=== PATIENT | male | born 1965 | race African-American/Black ===

== ENCOUNTER 2024-11-09 11:58 | Emergency (ER) | payer OTHER, SELFPAY ==
[2024-11-09] VITALS (26 sets, daily range): BP systolic 146–202; BP diastolic 91–118; PULSE 63–91; RESP 13–20; TEMP 36.9–37; O2SAT 96–100
--- NOTE | 2024-11-09 18:29 | ED.GENADULT ---
HPI - General Adult General Chief complaint: Hypertension Stated complaint: Hypertension Time Seen by Provider: 11/09/24 18:01 Mode of arrival: EMS History of Present Illness HPI narrative: 58-year-old gentleman brain aneurysm, hypertension brought in via EMS after being initially evaluated to get established with PCP visit today noticed blood pressure was extremely high told to come to the ER to be evaluated. Patient states he has not been compliant in taking his blood pressure medicines as previously stated which includes hydralazine and metoprolol. He has now actual reason why he has not taken it regularly but just states he has not taken them as directed. He denies fever, chills, body aches, chest pain, shortness of breath, leg swelling, headache, dizziness, blurred vision, weakness in the arms, legs, difficulty swallowing, or speaking. Other than what is stated 14 point review of system is negative. Related Data Allergies Allergy/AdvReac Type Severity Reaction Status Date / Time No Known Drug Allergies Allergy Verified 11/09/24 12:02 Review of Systems Review of Systems ROS Unobtainable: All systems reviewed & are unremarkable except as noted in HPI and below Patient History Social History Smoking Status: Never smoker Smoking Status: Never smoker Exam Narrative Exam Narrative: GENERAL: [58] year old patient appears stated age. Well-developed patient, in mild distress. HEAD: Atraumatic. Normocephalic. EYES: Pupils equal round and reactive. Extraocular motions intact. No scleral icterus. No injection or drainage. ENT: Nose without bleeding, purulent drainage. Throat without erythema, tonsillar hypertrophy or exudate. Airway patent. NECK: Trachea midline. Non tender CARDIOVASCULAR: Regular rate and rhythm without murmurs, gallops, or rubs. RESPIRATORY: Clear to auscultation. Breath sounds equal bilaterally. No wheezes, rales, or rhonchi. GASTROINTESTINAL: Abdomen soft, non-tender, nondistended. EXTREMITIES: No edema or joint tenderness. BACK: Nontender without deformity or crepitance. No flank tenderness. NEURO: AOx3. GCS 15 nonfocal neuro exam SKIN: No rash or erythema of visible areas Initial Vital Signs Initial Vital Signs: Vital Signs Temperature 98.4 F 11/09/24 12:02 Pulse Rate 78 11/09/24 12:02 Respiratory Rate 18 11/09/24 12:02 Blood Pressure 200/113 H 11/09/24 12:02 Pulse Oximetry 98 11/09/24 12:02 Oxygen Delivery Method Room Air 11/09/24 12:02 Course Orders Ordered: ED Orders 11/09/24 18:35 XR chest 1V Stat EKG-12 Lead Stat 11/09/24 18:36 CT angio head and neck Stat CT head/brain wo con Stat 11/09/24 19:03 Complete Blood Count AUTO DIFF Stat Comprehensive Metabolic Panel Stat Lipase Stat Troponin & CK Cardiac Panel Stat 11/09/24 19:25 EKG-12 Lead Routine 11/09/24 22:05 Troponin I Stat Discontinued Medications Aspirin (Aspirin Ec 325 Mg Tablet) 325 mg PO NOW ONE Stop: 11/09/24 19:51 Last Admin: 11/09/24 20:23 Dose: 325 mg Documented By: CLARENCE Metoprolol Tartrate (Metoprolol Tartrate 5 Mg/5 Ml Inj) 5 mg IV NOW ONE Stop: 11/09/24 19:48 Last Admin: 11/09/24 20:31 Dose: 5 mg Documented By: CLARENCE Potassium Chloride (Potassium Chloride 20 Meq/15 Ml Udc) 40 meq PO NOW ONE Stop: 11/09/24 19:51 Last Admin: 11/09/24 20:22 Dose: 40 meq Documented By: LCARENCE Vital Signs Vital signs: Vital Signs - 8 hr 11/09/24 16:43 11/09/24 17:45 11/09/24 18:00 Pulse Rate 91 H 75 76 Respiratory Rate 20 14 16 Blood Pressure 202/118 H Pulse Oximetry 98 100 Oxygen Delivery Method Room Air 11/09/24 18:00 11/09/24 18:30 11/09/24 18:31 Pulse Rate 91 H 90 Respiratory Rate 18 20 Blood Pressure 166/100 H Pulse Oximetry Oxygen Delivery Method 11/09/24 18:31 11/09/24 19:00 11/09/24 19:27 Pulse Rate 73 83 Respiratory Rate 15 20 Blood Pressure 149/114 H Pulse Oximetry 100 100 Oxygen Delivery Method 11/09/24 19:27 11/09/24 19:28 11/09/24 19:28 Pulse Rate 79 Respiratory Rate 15 Blood Pressure 178/115 H 176/112 H Pulse Oximetry 100 Oxygen Delivery Method 11/09/24 19:30 11/09/24 19:30 11/09/24 20:00 Pulse Rate 80 Respiratory Rate 16 Blood Pressure 177/116 H 175/104 H Pulse Oximetry 100 Oxygen Delivery Method 11/09/24 20:00 11/09/24 20:30 11/09/24 20:30 Pulse Rate 69 67 Respiratory Rate 14 13 Blood Pressure 178/101 H Pulse Oximetry 100 100 Oxygen Delivery Method 11/09/24 20:35 11/09/24 20:35 11/09/24 20:46 Pulse Rate 72 64 Respiratory Rate 14 14 Blood Pressure 184/110 H Pulse Oximetry 100 100 Oxygen Delivery Method 11/09/24 20:46 11/09/24 21:00 11/09/24 21:00 Pulse Rate 66 Respiratory Rate 15 Blood Pressure 167/110 H 146/92 H Pulse Oximetry 100 Oxygen Delivery Method Room Air 11/09/24 21:05 11/09/24 21:05 11/09/24 21:15 Pulse Rate 73 Respiratory Rate 15 Blood Pressure 153/100 H 152/102 H Pulse Oximetry 100 Oxygen Delivery Method 11/09/24 21:15 11/09/24 21:44 11/09/24 21:46 Pulse Rate 66 79 68 Respiratory Rate 16 Blood Pressure Pulse Oximetry 100 96 100 Oxygen Delivery Method 11/09/24 21:46 11/09/24 22:00 11/09/24 22:00 Pulse Rate 66 Respiratory Rate Blood Pressure 169/102 H 159/95 H Pulse Oximetry 100 Oxygen Delivery Method 11/09/24 22:15 11/09/24 22:15 11/09/24 22:30 Pulse Rate 63 75 Respiratory Rate 16 Blood Pressure 156/98 H Pulse Oximetry 100 100 Oxygen Delivery Method Room Air Medical Decision Making Lab Data 11/09/24 19:03 11/09/24 19:03 Labs: Lab Results 11/09/24 11/09/24 Range/Units 19:03 22:05 WBC 7.4 (4.5-11.0) X10^3/uL RBC 4.39 L (4.5-5.9) X10^6/uL Hgb 12.3 L (13.5-17.5) g/dL Hct 37.3 L (41-53) % MCV 84.9 (80-100) fL MCH 27.9 (26-34) PG MCHC 32.9 (30-36) % RDW 21.2 H (11.6-14.8) % Plt Count 175 (150-400) X10^3/uL Neut % (Auto) 63.4 (50-75) % Lymph % (Auto) 25.4 (25-40) % [place] % (Auto) 8.6 (3-14) % Eos % (Auto) 1.5 L (2-4) % Baso % (Auto) 1.1 (0-2) % Neut # (Auto) 4700 (2579-1448) /uL Lymph # (Auto) 1900 (4543-5399) /uL [place] # (Auto) 600 (0-900) /uL Eos # (Auto) 100 (0-450) /uL Baso # (Auto) 100 (0-100) /uL Platelet Estimate Adequate on smear RBC Morphology See below Anisocytosis 2+ H Sodium 131 L (137-145) mmol/L Potassium 3.3 L (3.4-5.1) mmol/L Chloride 98 (98-107) mmol/L Carbon Dioxide 25 (22-32) mmol/L BUN 7 L (9-20) mg/dL Creatinine 0.98 (0.66-1.25) mg/dL Estimated GFR > 60 (>60) mL/min BUN/Creatinine Ratio 7.1 (6-22) Glucose 96 (70-99) mg/dL Calcium 9.3 (8.4-10.2) mg/dL Total Bilirubin 1.0 (0.2-1.3) mg/dL AST 37 (17-59) IU/L ALT 17 (<50) IU/L Alkaline Phosphatase 107 (38-126) U/L Total Creatine Kinase 127 (55-170) U/L Troponin I 0.041 H 0.053 H (0.01-0.034) ng/mL Total Protein 8.6 H (6.3-8.2) g/dL Albumin 4.3 (3.5-5.0) g/dL Globulin 4.3 H (1.7-4.1) g/dL Albumin/Globulin Ratio 1.0 (1.0-2.8) Lipase 109 (23-300) U/L Imaging Data CT scan - head: Radiologist's Impression: [address] [address] [address] Scan Report Signed Patient: Halima Wilkes MR#: [id number] : 1965 Acct:[id number] Age/Sex: 58 / M Date of Service: 11/09/24 Loc: ED Accession Number: [id number] Procedure: CT head/brain wo con Ordering Provider: Dylan Edmonds D.O. PROCEDURE: CT HEAD/BRAIN WO CON INDICATIONS: elevated bp. hx of brain aneursym TECHNIQUE: Noncontrast 4.5 mm thick angled axial sections acquired from the foramen magnum to the vertex, with coronal and sagittal reformats. For radiation dose reduction, the following was used: automated exposure control, adjustment of mA and/or kV according to patient size. COMPARISON: None. FINDINGS: Image quality: Streak artifact from aneurysmal clip limits evaluation of surrounding structures. CSF spaces: Basal cisterns are patent. No extra-axial fluid collections. The ventricles are symmetric in size and shape. Brain: No intracranial bleeds or mass effect. There is cerebral volume loss, with resultant ventricular and sulcal prominence. There are periventricular and deep white matter chronic small vessel ischemic changes. There is intracranial internal carotid artery atherosclerosis. 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 Skull and face: Calvarium and visualized facial bones appear intact, without suspicious lesions. Sinuses: Visualized sinuses and mastoids are clear. IMPRESSION: [place] [address] CT Scan Report Signed Patient: Halima Wilkes MR#: [id number] : 1965 Acct:[id number] Age/Sex: 58 / M Date of Service: 11/09/24 Loc: ED Accession Number: [id number] Procedure: CT angio head and neck Ordering Provider: Dylan Edmonds D.O. PROCEDURE: CT ANGIO HEAD AND NECK INDICATIONS: headache/ elevated bp / hx of brain aneursym TECHNIQUE: After the administration of intravenous contrast, 1 mm thick sections acquired from the aortic arch through the [place] of [place]. 3-dimensional detwgok-milhoncuz-ixnlsdlmak (MIP) and/or volume rendering reformats were acquired of the central intracranial vasculature and neck separately. For radiation dose reduction, the following was used: automated exposure control, adjustment of mA and/or kV according to patient size. COMPARISON: None. FINDINGS: Image quality: Streak artifact from left aneurysmal clip. Cerebral CT Angiogram: Internal carotid arteries: No acute findings. Intracranial ICA are patent with no significant stenosis. No occlusion. No aneurysm. Anterior cerebral arteries: Unremarkable. No significant stenosis. No occlusion. No aneurysm. Middle cerebral arteries: Unremarkable. No significant stenosis. No occlusion. No aneurysm. Posterior cerebral arteries: Unremarkable. No significant stenosis. No occlusion. No aneurysm. Basilar artery: Unremarkable. No significant stenosis. No occlusion. No aneurysm. Vertebral arteries: Unremarkable as visualized. Dural venous sinuses: Unremarkable given phase of enhancement. Other: Arterial phase appearance of the brain parenchyma is unremarkable. Neck CT Angiogram: Internal carotid arteries: Unremarkable. No significant stenosis. No dissection or occlusion. Common carotid arteries: Unremarkable. No significant stenosis. No dissection or occlusion. External carotid arteries: Unremarkable. No occlusion. Vertebral arteries: Unremarkable. No significant stenosis. No dissection or occlusion. Aortic Arch and Mediastinum: Partially visualized aortic arch unremarkable without evidence of aneurysm. Origins of the great vessels unremarkable. Other: Arterial phase soft tissues of the neck and chest are unremarkable. IMPRESSION: No significant intracranial arterial abnormality is seen. No significant abnormality is seen within the arteries of the neck. Any quantitative measurements of stenosis were performed using NASCET criteria. Chest x-ray: Radiologist's Impression: [place] [address] XRay Report Signed Patient: Halima Wilkes MR#: [id number] : 1965 Acct:[id number] Age/Sex: 58 / M Date of Service: 11/09/24 Loc: ED Accession Number: [id number] Procedure: XR chest 1V Ordering Provider: Dylan Edmonds D.O. PROCEDURE: XR CHEST 1V INDICATIONS: chest pain TECHNIQUE: One view of the chest was acquired. COMPARISON: None. FINDINGS: Surgical changes and devices: None. Lungs and pleura: Lungs are clear. No pleural effusions or pneumothorax. Mediastinum: Mediastinal contours appear normal. Heart size is normal. Bones and chest wall: No suspicious bony lesions. Overlying soft tissues appear unremarkable. IMPRESSION: No acute cardiopulmonary abnormality is seen. MDM Narrative Medical decision making narrative: Vital signs, nurse triage note, medication list, previous ER visits, and all imaging studies reviewed. Patient given Lopressor 5 mg IV x1. Chest x-ray, CT head and CTA head and neck showed no acute process. Hemoglobin 12.33 sodium 131, potassium 3.3. Troponin 0.041 1st set. Troponin 2nd set 0.053. Sodium 131 potassium 3.[address] head and neck and CT head showed no acute process along with chest x-ray. Patient given Lopressor 5 mg IV x1 and potassium solution.. Patient not having any active chest pain at this time. EKG normal sinus rhythm heart rate [address] T wave changes LVH. Differential diagnosis patient noncompliance taking medication, hypertensive urgency, emergency. Discharge Plan Departure Patient Disposition: Home Clinical Impression: Hypertensive urgency, Acute hyponatremia, Hypokalemia Instructions: DI for High Blood Pressure Activity Restrictions/Additional Instructions: Return with new or worsening symptoms. Please take hydralazine lisinopril and metoprolol as previously prescribed for your blood pressure and please follow up with PCP in 1-2 weeks for re-evaluation. Stand Alone Forms: Patient Portal/API
--- NOTE | 2024-11-09 18:35 | DI.RAD.S_ITS ---
PROCEDURE: XR CHEST 1V INDICATIONS: chest pain TECHNIQUE: One view of the chest was acquired. COMPARISON: None. FINDINGS: Surgical changes and devices: None. Lungs and pleura: Lungs are clear. No pleural effusions or pneumothorax. Mediastinum: Mediastinal contours appear normal. Heart size is normal. Bones and chest wall: No suspicious bony lesions. Overlying soft tissues appear unremarkable. IMPRESSION: No acute cardiopulmonary abnormality is seen. Approved by: Kat Sanford M.D.,Ph.D. on 11/09/2024 at 19:16
--- NOTE | 2024-11-09 18:36 | DI.CT.S_ITS ---
PROCEDURE: CT HEAD/BRAIN WO CON INDICATIONS: elevated bp. hx of brain aneursym TECHNIQUE: Noncontrast 4.5 mm thick angled axial sections acquired from the foramen magnum to the vertex, with coronal and sagittal reformats. For radiation dose reduction, the following was used: automated exposure control, adjustment of mA and/or kV according to patient size. COMPARISON: None. FINDINGS: Image quality: Streak artifact from aneurysmal clip limits evaluation of surrounding structures. CSF spaces: Basal cisterns are patent. No extra-axial fluid collections. The ventricles are symmetric in size and shape. Brain: No intracranial bleeds or mass effect. There is cerebral volume loss, with resultant ventricular and sulcal prominence. There are periventricular and deep white matter chronic small vessel ischemic changes. There is intracranial internal carotid artery atherosclerosis. 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 Skull and face: Calvarium and visualized facial bones appear intact, without suspicious lesions. Sinuses: Visualized sinuses and mastoids are clear. IMPRESSION: No acute intracranial pathology. Approved by: Kat Sanford M.D.,Ph.D. on 11/09/2024 at 19:19
--- NOTE | 2024-11-09 18:36 | DI.CT.S_ITS ---
PROCEDURE: CT ANGIO HEAD AND NECK INDICATIONS: headache/ elevated bp / hx of brain aneursym TECHNIQUE: After the administration of intravenous contrast, 1 mm thick sections acquired from the aortic arch through the [place] of [place]. 3-dimensional wzvxjhs-jrngchjvh-jczyymnifz (MIP) and/or volume rendering reformats were acquired of the central intracranial vasculature and neck separately. For radiation dose reduction, the following was used: automated exposure control, adjustment of mA and/or kV according to patient size. COMPARISON: None. FINDINGS: Image quality: Streak artifact from left aneurysmal clip. Cerebral CT Angiogram: Internal carotid arteries: No acute findings. Intracranial ICA are patent with no significant stenosis. No occlusion. No aneurysm. Anterior cerebral arteries: Unremarkable. No significant stenosis. No occlusion. No aneurysm. Middle cerebral arteries: Unremarkable. No significant stenosis. No occlusion. No aneurysm. Posterior cerebral arteries: Unremarkable. No significant stenosis. No occlusion. No aneurysm. Basilar artery: Unremarkable. No significant stenosis. No occlusion. No aneurysm. Vertebral arteries: Unremarkable as visualized. Dural venous sinuses: Unremarkable given phase of enhancement. Other: Arterial phase appearance of the brain parenchyma is unremarkable. Neck CT Angiogram: Internal carotid arteries: Unremarkable. No significant stenosis. No dissection or occlusion. Common carotid arteries: Unremarkable. No significant stenosis. No dissection or occlusion. External carotid arteries: Unremarkable. No occlusion. Vertebral arteries: Unremarkable. No significant stenosis. No dissection or occlusion. Aortic Arch and Mediastinum: Partially visualized aortic arch unremarkable without evidence of aneurysm. Origins of the great vessels unremarkable. Other: Arterial phase soft tissues of the neck and chest are unremarkable. IMPRESSION: No significant intracranial arterial abnormality is seen. No significant abnormality is seen within the arteries of the neck. Any quantitative measurements of stenosis were performed using NASCET criteria. Approved by: Kat Sanford M.D.,Ph.D. on 11/09/2024 at 19:26
--- NOTE | 2024-11-09 19:16 | EKG_ITS ---
[place] [address] [place] [address] Test Date: 2024-11-09 Pat Name: Halima Wilkes Department: [facility] Room: Gender: Male Auto Electrical Technician: LEONARDOTRISTIN : 1965 Requested By: Order Number: [id number] Reading MD: Reggie Castillo Measurements Intervals [place] Rate: 84 P: 103 [place]: 148 QRS: 194 QRSD: 86 T: 242 QT: 434 QTc: 512 Interpretive Statements Suspect arm lead reversal, interpretation assumes no reversal Normal sinus rhythm Right superior axis deviation Pulmonary disease pattern Left ventricular hypertrophy with repolarization abnormality ( Sokolow-Mercado ) Prolonged QT Electronically Signed On 11-11-2024 17:08:43 PDT by Reggie Castillo
[2024-11-09 19:17] LABS: Add Manual Diff / Slide Review NO; Hematocrit 37.3 % (41-53); Hemoglobin 12.3 g/dL (13.5-17.5); Lymphocytes Absolute Auto 1900 /uL (1100-4500); Mean Corpuscular HGB Conc 32.9 % (30-36); Mean Corpuscular Hemoglobin 27.9 PG (26-34); Mean Corpuscular Volume 84.9 fL (80-100); Platelet Count 175 X10^3/uL (150-400)
[2024-11-09 19:21] LABS: Alanine Aminotransferase 17 IU/L (<50); Albumin 4.3 g/dL (3.5-5.0); Albumin Globulin Ratio 1.0 (1.0-2.8); Alkaline Phosphatase 107 U/L (38-126); Blood Urea Nitrogen 7 mg/dL (9-20); Calcium 9.3 mg/dL (8.4-10.2); Carbon Dioxide 25 mmol/L (22-32); Chloride 98 mmol/L (98-107); Creatine Kinase 127 U/L (55-170); Estimated Glomerular Filt Rate > 60 mL/min (>60); Globulin 4.3 g/dL (1.7-4.1); Glucose 96 mg/dL (70-99); HEMOLYSIS < 15 (0-50); Lipase 109 U/L (23-300); Potassium 3.3 mmol/L (3.4-5.1); Sodium 131 mmol/L (137-145); Total Protein 8.6 g/dL (6.3-8.2)
--- NOTE | 2024-11-09 19:25 | EKG_ITS ---
[place] [address] [place] [id number] Test Date: 2024-11-09 Pat Name: Halima Wilkes Department: [facility] Room: Gender: Male Auto Parts Handler: ODELL : 1965 Requested By: Order Number: [id number] Reading MD: Reggie Castillo Measurements Intervals [place] Rate: 79 P: 44 [place]: 148 QRS: -20 QRSD: 88 T: -74 QT: 426 QTc: 488 Interpretive Statements Normal sinus rhythm Voltage criteria for left ventricular hypertrophy ( R in aVL , Sokolow-Mercado , Leo product ) T wave abnormality, consider inferior ischemia Prolonged QT Electronically Signed On 11-11-2024 17:08:51 PDT by Reggie Castillo
[2024-11-09 19:33] LABS: Troponin I 0.041 ng/mL (0.01-0.034)
--- NOTE | 2024-11-09 19:36 | PC.NURSE ---
Patient reports being sent here by his provider for high blood pressure. Denies any chest pain, new onset of changes in vision, headache or any other symptoms. Reports has been prescribed medications for high blood pressure in the past, but does not want to take them due to worried about becoming high. Education given regarding blood pressure medications. He has his medications with him and according to his prescribed medications they are hydralazine 25mg TID, lisinopril 20mg once daily, metoprolol 50mg BID. Also reports he does take them when I feel like it but does not have a consistent schedule for taking these medications. Also reports history of brain aneurysm.
[2024-11-09 19:45] LABS: Anisocytosis 2+
[2024-11-09] MEDS: POTASSIUM CHLORIDE 20 MEQ/15 ML UDC 40 MEQ PO (20:22)
[2024-11-09] MEDS: ASPIRIN EC 325 MG TABLET PO (20:23)
[2024-11-09] MEDS: METOPROLOL TARTRATE 5 MG/5 ML INJ IV (20:31)
[2024-11-09 22:35] LABS: Troponin I 0.053 ng/mL (0.01-0.034)
--- NOTE | 2024-11-09 23:10 | PC.NURSE ---
2305: Notified provider Edmonds of second troponin of 0.053. Provider aware and deems safe for discharge.
== END 2024-11-09 23:08 | disposition home or self-care (01) ==
PROVIDERS: Emergency Provider Family Medicine
DX: I16.0 Hypertensive urgency (principal); E87.1 Hypo-osmolality and hyponatremia; E87.6 Hypokalemia; I10 Essential (primary) hypertension; Z86.79 Personal history of other diseases of the circulatory system; Z91.148 Patient's other noncompliance with medication regimen for other reason
CPT/HCPCS: 70450; 70496; 70498; 71045; 80053; 82550; 83690; 84484; 85025; 93005; 96374; 99284; Q9967